=== PATIENT | female | born 1945 | race Caucasian/White ===

== ENCOUNTER 2016-07-23 07:56 | Outpatient (CLI) | payer MEDICARE, OTHER ==
[~2016-07-23] VITALS: Ht 167.6 cm; Wt 68.2 kg
--- NOTE | ~2016-07-23 | HEMODYNAMI ---
PATIENT:BRODIE GARIBAY MEDICAL RECORD: [id number] : 41 LOCATION:[facility] ADMISSION DATE: 07/23/16 Generatedon:07/23/201611:23 Patient name: BRODIE GARIBAY Patient #: [id number] : 1945 Date of study: 07/23/2016 Page: Of Hemodynamic Procedure Report Patient Data Patient Demographics Procedure consent was obtained First Name: BRODIE Gender: Female Last Name: PHOENIX : 1945 Middle Initial: SIMEON Age: 70 year(s) Patient #: [id number] Race: Unknown SSN: [id number] Additional ID: [id number] Contact details Address: [address] [place] [address] [facility] State: [place] City: [place] Zip code: [address] Past Medical History Allergies Allergen Reaction Date Comments Reported Other allergy 07/23/2016 Antihistamines, tylenol, alkylamine Admission Admission Data Admission Date: 07/23/2016 Admission Time: 7:56 Arrival Date: 07/23/2016 Arrival Time: 0:00 Admit Source: Other Insurance Payor: Medicare, Private health insurance Height (in.): 66 BSA: 1.79 (m2) Height (cm.): 167.64 BMI: 25.02 (kg/m2) Weight (lbs.): 155 Weight (kg.): 70.31 Lab Results Lab Result Date: 07/23/2016 Lab Result Time: 0:00 Biochemistry Name Units Result Min Max BUN mg/dl 25 --(----)-* 7 18 Creatinine mg/dl 1.6 --(----)-* 0.6 1.3 CBC Name Units Result Min Max Hemoglobin g/dl 14.3 --(*---)-- 13.5 17.5 Procedure Procedure Types Cath Procedure Diagnostic Procedure LHC LHC w/Coronaries w/Grafts PCI Procedure Coronary Stent Initial Miscellaneous Procedures Moderate Sedation up to 15 minutes Procedure Description Procedure Date Procedure Date: 07/23/2016 Procedure Start Time: 10:28 Procedure End Time: 11:19 Procedure Staff Name Function Rodrigo Heck MD Performing Physician Katherine Lang RT Scrub Alexa Luz RN Nurse Gonzalo Queen RT Brass Reclaimer Jyoti Cherry RT Monitor Procedure Data Cath Procedure Fluoroscopy Diagnostic fluoroscopy Total fluoroscopy Time: time: 20.9 min 20.9 min Diagnostic fluoroscopy Total fluoroscopy dose: dose: 1457 mGy 1457 mGy Contrast Material Contrast Material Type Amount (ml) Isovue 300 173 Entry Location Entry Primary Successful Side Size Upsize Upsize Entry Closure Succes sful Closure Location (Fr) 1 (Fr) 2 (Fr) Remarks Device Remarks Femoral Right 5 Fr 6 Fr 7 Fr Exoseal artery Short Short Estimated blood loss: 10 ml Diagnostic catheters Device Type Used For End Catheter Placement Cordis 5Fr Pigtail LV Angiography Catheter (MP) Cordis 5Fr JL 4.0 Left Coronary Catheter (MP) Angiography Cordis 5Fr 3DRC Catheter Procedure (MP) Cordis Infinity 5Fr AR 2 Procedure MOD catheter Procedure Complications No complications Procedure Medications Medication Administration Route Dosage Oxygen NC 2 l/min Lidocaine 2% added to field 20 Heparin Flush Bag added to field 2 bags (1000units/500ml NS) 0.9% NaCl I.V. 300 ml/hr Versed I.V. 1 mg Fentanyl I.V. 50 mcg Versed I.V. 1 mg Fentanyl I.V. 50 mcg Versed I.V. 1 mg Fentanyl I.V. 50 mcg Versed I.V. 1 mg Fentanyl I.V. 50 mcg Versed I.V. 1 mg Fentanyl I.V. 50 mcg Heparin Bolus I.V. 5000 units Versed I.V. 1 mg Fentanyl I.V. 50 mcg Versed I.V. 1 mg Fentanyl I.V. 50 mcg Heparin Bolus I.V. 3000 units Versed I.V. 1 mg Fentanyl I.V. 50 mcg Hemodynamics Rest BSA: 1.79 (m2) HGB: 14.3 (g/dl) O2 Consumption: Estimated: 160.06 (ml/min) O2 Co nsumption indexed: Estimated:89.42 (ml/min/m) Heart Rate: 64 (bpm) Snapshots Pre Cath Intra NCS Post Cath Vital Signs Time Heart Resp SPO2 etCO2 UA0eouz NIBP (mmHg) Rhythm Pain Sedation Rate (ipm) (%) (mmHg) (mmHg) Status Level (bpm) 9:54:26 68 17 97 0 0 138/91(116) NSR 0 (11) 10(A) , No pain 9:58:38 67 19 96 0 0 142/94(100) NSR 0 (11) 10(A) , No pain 10:02:52 66 20 99 0 0 138/87(109) NSR 0 () 10(A) , No pain 10:07:06 63 15 95 0 0 128/85(112) NSR 0 () 10(A) , No pain 10:11:18 63 19 96 0 0 126/80(112) NSR 0 () 10(A) , No pain 10:15:30 60 21 95 0 0 125/77(106) NSR 0 () 10(A) , No pain 10:19:42 62 16 97 0 0 114/73(95) NSR 0 () 9(A) , No pain 10:23:52 62 18 94 0 0 112/71(87) NSR 0 () 9(A) , No pain 10:28:00 66 21 97 0 0 127/73(107) NSR 0 () 9(A) , No pain 10:32:13 66 20 96 0 0 105/68(85) NSR 0 () 9(A) , No pain 10:36:19 70 21 95 0 0 117/71(93) NSR 0 (11) 9(A) , No pain 10:40:29 62 29 98 0 0 121/73(93) NSR 0 () 9(A) , No pain 10:44:37 76 16 98 0 0 129/82(109) NSR 0 (11) 9(A) , No pain 10:48:51 68 18 98 0 0 122/76(99) NSR 0 (11) 9(A) , No pain 10:53:03 66 17 94 0 0 120/70(87) NSR 0 (11) 9(A) , No pain 10:57:13 68 19 96 0 0 113/72(105) NSR 0 (11) 9(A) , No pain 11:01:23 69 18 95 0 0 117/69(108) NSR 0 (11) 9(A) , No pain 11:05:33 68 18 96 0 0 118/68(101) NSR 0 (11) 9(A) , No pain 11:09:45 69 18 94 0 0 109/64(84) NSR 0 (11) 9(A) , No pain 11:13:52 73 18 94 0 0 107/69(90) NSR 0 (11) 9(A) , No pain 11:15:08 70 19 96 0 0 110/67(90) NSR 0 (11) 10(A) , No pain 11:16:38 71 19 95 0 0 110/68(86) NSR 0 (11) 10(A) , No pain Medications Time Medication Route Dose Verified Delivered Reason Notes Effectiveness by by 9:59:51 Oxygen NC 2 Rodrigo Buffie used for l/min Maria R Luz RN procedure 9:59:58 Lidocaine 2% added 20ml Rodrigo Rodrigo for local to vial Maria R Heck MD anesthetic field 10:00:04 Heparin Flush added 2 Rodrigo Rodrigo used for Bag to bags Maria R Heck MD procedure (1000units/500ml field NS) 10:00:17 0.9% NaCl I.V. 300 Rodrigo Buffie Per physician ml/hr Maria R Luz RN 10:14:35 Versed I.V. 1 mg Rodrigo Buffie for sedation Maria R Luz RN 10:14:42 Fentanyl I.V. 50 Rodrigo Buffie for sedation mcg Maria R Luz RN 10:18:45 Versed I.V. 1 mg Rodrigo Buffie for sedation Maria R Luz RN 10:18:51 Fentanyl I.V. 50 Rodrigo Buffie for sedation mcg MariaR Luz RN 10:22:35 Versed I.V. 1 mg Rodrigo Buffie for sedation Maria R Luz RN 10:22:39 Fentanyl I.V. 50 Rodrigo Buffie for sedation mcg Maria R Luz RN 10:32:07 Versed I.V. 1 mg Rodrigo Buffie for sedation Maria R Luz RN 10:32:12 Fentanyl I.V. 50 Rodrigo Buffie for sedation mcg Maria R Luz RN 10:35:31 Versed I.V. 1 mg Rodrigo Buffie for sedation Maria R Luz RN 10:35:34 Fentanyl I.V. 50 Rodrigo Buffie for sedation mcg Maria R Luz RN 10:40:02 Heparin Bolus I.V. 5000 Rodrigo Buffie for verifi ed units Maria R Luz RN anticoagulation with dr heck 10:44:23 Versed I.V. 1 mg Rodrigo Buffie for sedation Maria R Luz RN 10:44:26 Fentanyl I.V. 50 Rodrigo Buffie for sedation mcg Maria R Luz RN 10:49:18 Versed I.V. 1 mg Rodrigo Buffie for sedation Maria R Luz RN 10:49:22 Fentanyl I.V. 50 Rodrigo Buffie for sedation mcg Maria R Luz RN 11:03:08 Heparin Bolus I.V. 3000 Rodrigo Buffie for verifi ed units Maria R Luz RN anticoagulation with dr heck 11:05:01 Versed I.V. 1 mg Rodrigo Buffie for sedation Maria R Lzu RN 11:06:38 Fentanyl I.V. 50 Rodrigo Buffie for sedation mcg Maria R Luz RN Procedure Log Time Note 9:42:12 Gonzalo Queen RT(R) sent for patient. Start room use. 9:50:27 Patient allergic to Other allergyAntihistamines, tylenol, alkylamine 9:50:36 Patient Height : 66 inches 9:50:41 Patient Weight : 155 lbs 9:50:41 Admit Source: Other 9:50:44 Arrival Date: 07/23/2016 12:00:00 AM 9:50:58 Insurance Payor : Private health insurance, Medicare 9:51:28 Diagnostic Cath Status : Elective 9:52:44 Time tracking: Regular hours 9:52:52 Plan of Care:Hemodynamics will remain stable., Cardiac rhythm will remain stable., Comfort level will be maintained., Respiratory function will remain adequate., Patient/ family verbilizes understanding of procedure., Procedure tolerated without complication., Recovers from procedure without complications.. 9:53:11 Patient received from Outpatients to CCL 1 Alert and oriented. Tansferred to table in Supine position. 9:53:13 Warm blankets applied, and mt hugger turned on for patient comfort. 9:53:14 Correct patient and procedure confirmed by team. 9:53:16 Signed procedure consent form obtained from patient. 9:53:18 ECG and BP/O2 sat monitors applied to patient. 9:53:23 Vital chart was started 9:53:38 Baseline sample Acquired. 9:53:49 Rhythm: sinus rhythm 9:53:51 Full Disclosure recording started 9:54:09 H&P Date Dictated: 07/15/2016 Within 30 days and on chart., H&P Addendum completed by physician on day of procedure. (MUST COMPLETE FOR ALL OUTPATIENTS). 9:54:14 Pre-procedure instructions explained to patient. 9:54:17 Family in waiting room. 9:54:27 Patient NPO since Midnight. 9:54:30 Is the patient allergic to Iodine/contrast media? No. 9:54:33 Is patient on blood thinner?Yes 9:54:37 ACC The patient was administered the following blood thiners within the last 24 hours: ACCPlavix 9:54:40 Patient diabetic? No. 9:54:48 Snore? No 9:54:50 Sleep apnea? No 9:54:52 Deviated septum? No 9:54:53 Opens mouth fully? Yes 9:54:54 Sticks out tongue? Yes 9:55:06 Dentures? Yes tight 9:55:15 Patient pain scale 0/10 ?. 9:55:31 IV patent on arrival in left forearm with 0.9% NaCl at [facility]. 9:56:13 Lab Result : BUN 25 mg/dl 9:56:13 Lab Result : Hemoglobin 14.3 g/dl 9:56:13 Lab Result : Creatinine 1.6 mg/dl 9:56:18 Lab results completed and on chart. 9:56:22 Right groin area was prepped with chlora-prep and draped in sterile fashion 9:56:24 Sharps counted by scrub and verified by R.N. 9:56:26 Physician paged 9:59:51 Oxygen 2 l/min NC was given by Alexa Luz RN; used for procedure; 9:59:58 Lidocaine 2% 20ml vial added to field was given by Rodrigo Heck MD; for local anesthetic; 10:00:04 Heparin Flush Bag (1000units/500ml NS) 2 bags added to field was given by Rodrigo Heck MD; used for procedure; 10:00:17 0.9% NaCl 300 ml/hr I.V. was given by Alexa Luz RN; Per physician; 10:07:12 Zero performed for pressure channel P1 10:09:15 Procedure type changed to Cath procedure, Diagnostic procedure, LHC, LHC w/Coronaries w/Grafts, PCI procedure, Coronary Stent Initial, Miscellaneous Procedures, Moderate Sedation up to 15 minutes 10:12:54 Physician arrived 10:12:55 --------ALL STOP TIME OUT------ 10:12:56 Final Timeout: patient, procedure, and site verified with staff and physician. All members of the team are in agreement. 10:12:59 Right groin site verified by team. 10:13:03 Physical assessment completed. ASA score P 2 - A patient with mild systemic disease as per Rodrigo Heck MD. 10:13:08 Sedation plan: IV Moderate Sedation Versed, Fentanyl 10:13:28 Acist Syringe opened to sterile field. 10:13:28 Cardinal Cath Pack opened to sterile field. 10:13:28 Bag Decanter opened to sterile field. 10:13:30 St Franklin 260cm J .035 wire opened to sterile field. 10:13:31 Acist Hand Control opened to sterile field. 10:13:32 Acist Manifold opened to sterile field. 10:13:36 Tegaderm 4 x 4 opened to sterile field. 10:14:35 Versed 1 mg I.V. was given by Alexa Luz RN; for sedation; 10:14:42 Fentanyl 50 mcg I.V. was given by Alexa Luz RN; for sedation; 10:18:45 Versed 1 mg I.V. was given by Alexa Luz RN; for sedation; 10:18:51 Fentanyl 50 mcg I.V. was given by Alexa Luz RN; for sedation; 10:22:35 Versed 1 mg I.V. was given by Alexa Luz RN; for sedation; 10:22:39 Fentanyl 50 mcg I.V. was given by Alexa Luz RN; for sedation; 10:27:59 Procedure started. 10:28:16 Local anesthetic to right femoral artery with Lidocaine 2% by Rodrigo Heck MD.INITIAL ACCESS ONLY 10:28:40 A 5 Fr sheath was inserted into the Right Femoral artery 10:30:11 Use device set Femoral Dx 10:30:28 A Cordis 5Fr Pigtail Catheter (MP) was advanced over the wire and used for LV Angiography. 10:31:02 EF : 50 % 10:31:04 Catheter removed. 10:32:07 Versed 1 mg I.V. was given by Alexa Luz RN; for sedation; 10:32:12 Fentanyl 50 mcg I.V. was given by Alexa Luz RN; for sedation; 10:32:27 A Cordis 5Fr JL 4.0 Catheter (MP) was advanced over the wire and used for Left Coronary Angiography. 10:33:34 Catheter removed. 10:34:19 A Cordis 5Fr 3DRC Catheter (MP) was advanced over the wire and used for Procedure. 10:34:46 [employer] BasixCompak Inflation Kit opened to sterile field. 10:34:47 Robledo Whisper J 300cm 0.014 guide wire opened to sterile field. 10:34:48 Terumo 6Fr [place] Sheath opened to sterile field. 10:35:01 JADE to LAD angiography performed. 10:35:31 Versed 1 mg I.V. was given by Alexa Luz RN; for sedation; 10:35:34 Fentanyl 50 mcg I.V. was given by Alexa Luz RN; for sedation; 10:35:49 RCA angiography performed. 10:36:01 Catheter removed. 10:36:37 A Cordis Infinity 5Fr AR 2 MOD catheter was advanced over the wire and used for Procedure. 10:38:29 SVG to OM angiography performed. 10:39:58 Medtronic Launcher 6Fr EBU 4.5 guide catheter opened to sterile field. 10:40:02 Heparin Bolus 5000 units I.V. was given by Alexa Luz RN; for anticoagulation; verified with dr heck 10:40:04 Proceeding to intervention. 10:40:17 Sheath upsized to a 6 Fr Short. 10:40:37 6 Fr EBU 4.5 guide catheter was inserted over the wire 10:40:53 EBU 4.5 unable to cannulate 10:42:13 [place] Sci Mach 1 6Fr Q 5.0 guide catheter opened to sterile field. 10:42:32 6 Fr Q5 guide catheter was inserted over the wire 10:43:13 Q5 unable to cannulate 10:43:52 Cordis 6FR XBLAD 4.0 guide catheter opened to sterile field. 10:44:07 6 Fr XBLAD 4 guide catheter was inserted over the wire 10:44:23 Versed 1 mg I.V. was given by Alexa Luz RN; for sedation; 10:44:26 Fentanyl 50 mcg I.V. was given by Alexa Luz RN; for sedation; 10:45:28 Sheath upsized to a 7 Fr Short. 10:45:32 Terumo 7Fr [place] Sheath opened to sterile field. 10:45:59 Medtronic Launcher 7Fr EBU 3.5 guide catheter opened to sterile field. 10:46:22 Medtronic Launcher 7Fr EBU 3.5 guide catheter opened to sterile field. 10:46:35 7 Fr EBU 3.5 guide catheter was inserted over the wire 10:48:44 Whisper wire advanced. 10:49:17 [place] 01[employer] Choice PT Extra Support J 300cm .014 gu opened to sterile field. 10:49:18 Versed 1 mg I.V. was given by Alexa Luz RN; for sedation; 10:49:22 Fentanyl 50 mcg I.V. was given by Alexa Luz RN; for sedation; 10:50:25 choice pt wire advanced. 10:51:44 Wire advanced across lesion. 10:52:34 Mav unable to cross 10:53:46 Inflation number: 1 A Euphora 3.0 x 20 Balloon was prepped and advanced across the Prox CX, then inflated to 13 LEANA for 0:10 (min:sec). 10:53:58 Inflation number: 2 The Euphora 3.0 x 20 Balloon was reinflated across the Prox CX, to 13 LEANA for 0:10 (min:sec). 10:54:07 Inflation number: 3 The Euphora 3.0 x 20 Balloon was reinflated across the Prox CX, to 13 LEANA for 0:10 (min:sec). 10:54:18 Inflation number: 4 The Euphora 3.0 x 20 Balloon was reinflated across the Prox CX, to 17 LEANA for 0:10 (min:sec). 10:55:34 Balloon removed over the wire. 10:56:59 Inflation Number: 1 A Medtronic Integrity 4.0 X 9 stent was prepped and advanced across the Mid CX. The stent was deployed at 17 LEANA for 0:10 (min:sec). 11:03:08 Heparin Bolus 3000 units I.V. was given by Alexa Luz RN; for anticoagulation; verified with dr heck 11:04:41 choice pt exchanged for new. 11:04:57 Inflation number: 1 A [place] Sci Snyder 4.0 X 20 balloon was prepped and advanced across the Prox CX, then inflated to 11 LEANA for 0:10 (min:sec). 11:05:01 Versed 1 mg I.V. was given by Alexa Luz RN; for sedation; 11:05:06 Inflation number: 2 The [place] Sci Snyder 4.0 X 20 balloon was reinflated across the Prox CX, to 11 LEANA for 0:10 (min:sec). 11:05:17 Balloon removed over the wire. 11:06:38 Fentanyl 50 mcg I.V. was given by Alexa Luz RN; for sedation; 11:07:33 Inflation Number: 7 A Medtronic Integrity 3.5 X 15 stent was prepped and advanced across the Prox CX. The stent was deployed at 17 LEANA for 0:10 (min:sec). 11:10:02 Inflation Number: 1 A Medtronic Integrity 3.5 X 9 stent was prepped and advanced across the Prox CX. The stent was deployed at 17 LEANA for 0:10 (min:sec). 11:11:28 The Medtronic Integrity 3.5 X 30 stent was advanced then removed because of failure to cross lesion 11:12:06 Wire removed. 11:12:09 Guide catheter removed. 11:12:31 Sheath removed intact; hemostasis achieved with Exoseal to the Right Femoral artery. 11:12:34 Procedure ended.(Physican Out) 11:13:51 Cordis 7Fr Exoseal opened to sterile field. 11:13:59 Fluoroscopy time 20.90 minutes. 11:14:09 Fluoroscopy dose: 1457 mGy 11:14:09 Flurop Dose total: 1457 11:14:14 Contrast amount:Isovue 300 173ml. 11:14:17 Sharps counted by scrub and verified by R.N. 11:14:23 Insertion/operative site no bleeding no hematoma. 11:14:27 Post-op/insertion site Right Femoral artery dressed using a 4 x 4 and Tegaderm. 11:14:30 Post Procedure Pulses reassessed and unchanged 11:14:35 Post-procedure physical assessment completed. ASA score P 2 - A patient with mild systemic disease as per Rodrigo Heck MD. 11:14:39 Post procedure rhythm: unchanged. 11:14:42 Estimated blood loss: 10 ml 11:14:45 Post procedure instruction explained to patient.Patient verbalizes understanding. 11:14:58 Procedure and supply charges have been captured, reviewed, submitted and are correct. 11:19:02 Procedure Complication : No complications 11:19:05 Vital chart was stopped 11:19:06 See physician's report for complete and final results. 11:19:22 Report given to Outpatients. 11:19:26 Patient transfered to Outpatients with Stretcher. 11:19:32 Procedure ended. 11:19:32 Full Disclosure recording stopped 11:19:36 End room use (Document Last) 11:19:58 ACC-PCI Only Patient was given prescriptions, or instructed by Rodrigo Heck MD to start/continue the following medications upon discharge: Plavix Intervention Summary Intervention Notes Time ActionType Lesion and Equipment Action# Pressure Duration Attributes Used 10:53:46 Inflate Prox CX Euphora 1 13 00:10 balloon 3.0 x 20 Balloon 10:53:58 Reinflate Prox CX Euphora 2 13 00:10 balloon 3.0 x 20 Balloon 10:54:07 Reinflate Prox CX Euphora 3 13 00:10 balloon 3.0 x 20 Balloon 10:54:18 Reinflate Prox CX Euphora 4 17 00:10 balloon 3.0 x 20 Balloon 10:56:59 Place stent Mid CX Medtronic 1 17 00:10 Integrity 4.0 X 9 stent 11:04:57 Inflate Prox CX [place] 1 11 00:10 balloon Sci Snyder 4.0 X 20 balloon 11:05:06 Reinflate Prox CX [place] 2 11 00:10 balloon Sci Snyder 4.0 X 20 balloon 11:07:33 Place stent Prox CX Medtronic 7 17 00:10 Integrity 3.5 X 15 stent 11:10:02 Place stent Prox CX Medtronic 1 17 00:10 Integrity 3.5 X 9 stent 11:11:28 Discard Medtronic Stent Integrity 3.5 X 30 stent Device Usage Item Name Manufacture Quantity Catalog Number Hospital Part Current Mini mal Lot# / Charge Number Stock Stock Serial# Code [facility] 2 91271 [id number] [id number] [id number] 20 [employer] [facility] [address] 064116 28239 094502 5 Cath Pack Health Bag Microtek 2 2002S 775322 44107 854155 [address] [facility] 2 619468 132342 912687 347453 30 260cm J .035 wire Acist Hand Acist 2 18694 251660 047971 918152 5 Control Medical Systems Inc Acist Acist 2 78408 283579 098610 987421 5 Manifold Medical Systems Inc Tegaderm 4 3M 2 1626W 548343 642206 607359 5 x 4 Cordis 5Fr Cardinal 1 656519 5 Pigtail Health Catheter (MP) Cordis 5Fr Cardinal 1 880641 5 JL 4.0 Health Catheter (MP) Cordis 5Fr Cardinal 1 195255 5 3DRC Health Catheter (MP) [facility] 1 [id number] 065149 569784 506920 15 [employer] Medical Inflation Kit Robledo Robledo 1 [id number] 018075 585352 316502 5 Whisper J Vascular 300cm 0.014 guide wire Terumo 6Fr Terumo 1 [id number] 644432 414053 449565 40 [place] Sheath Cordis Cardinal 1 [id number] 507272 332852 851629 20 Blueprint Labsity Health 5Fr AR 2 MOD catheter Medtronic Medtronic 1 [id number] 462921 19258 311867 0 Launcher 6Fr EBU 4.5 guide catheter [place] Sci [place] 1 [id number] 465682 047286 136101 0 Mach 1 6Fr Scientific Q 5.0 guide catheter Cordis 6FR Cardinal 1 [id number] 097502 679931 155868 3 XBLAD 4.0 Health guide catheter Terumo 7Fr Terumo 1 [id number] 386898 819800 750901 5 [place] Sheath Medtronic Medtronic 2 [id number] 662226 833131 937062 0 Launcher 7Fr EBU 3.5 guide catheter Terumo 5Fr Terumo 1 [id number] 440058 076963 032900 40 [place] Sheath Cordis Cardinal 1 [id number] 371731 73845 641865 30 Infinity Health 5Fr Multipack catheter IV Hospira 1 670568 22294 076952 5 Extension Set Terumo 6Fr Terumo 1 [id number] 126286 933135 801810 40 Slender Glidesheath [place] Sci [place] 1 [id number] 921735 115704 466307 5 Choice PT Scientific Extra Support J 300cm .014 gu Euphora 3.0 Medtronic 1 [id number] 760052 588140 775970 5 [id number] x 20 Balloon Medtronic Medtronic 1 [id number] 381561 508768 4422557 0 [id number] Integrity 4.0 X 9 stent [place] Sci [place] 1 [id number] 300772 120271 699772 1 [id number] Snyder Scientific 4.0 X 20 balloon Medtronic Medtronic 1 [id number] 626749 357589 472864 9 [id number] Integrity 3.5 X 15 stent Medtronic Medtronic 1 [id number] 664573 391891 417171 5 [id number] Integrity 3.5 X 9 stent Medtronic Medtronic 1 [id number] 033965 440389 867137 2 [id number] Integrity 3.5 X 30 stent Cordis 7Fr Cardinal 1 [id number] 353358 512485 477224 5 [facility] Health Signature Audit [place] Stage Time Signature Unsigned Intra-Procedure 07/23/2016 Jyoti Cherry 11:23:34 AM RT(R) Signatures Monitor : Jyoti Cherry RT Signature : Date : Time : [id number] [place] [address]
[~2016-07-23 07:56] MED LIST: BAYER CHEWABLE81 MG PO; CARDIZEM CD240 MG PO; FLAGYL500 MG PO; LEVSIN/ANASP0.125 MG SL; PLAVIX75 MG PO; PRAVACHOL10 MG PO; PREDNISONE5 MG PO; ZANAFLEX4 MG PO
[2016-07-23 08:48] VITALS: Ht 167.6 cm; Wt 68.2 kg
[2016-07-23 08:56] LABS: BASOPHILS 0.3 % (0.0-2.0); EOSINOPHILS 2.4 % (0-7); HEMATOCRIT 43.1 % (36.0-48.0); HEMOGLOBIN 14.3 g/dL (12-16); LYMPHOCYTES 40.7 % (15-50); MCH 30.5 pg (26.0-34.0); MCHC 33.2 g/dL (31.0-37.0); MCV 91.9 fL (80.0-100.0); MEAN PLATELET VOLUME 9.8 fL (7.4-10.4); MONOCYTES 8.8 % (2-11); NEUTROPHILS 46.8 % (40-80); RBC 4.69 10x6/uL (4.00-5.40); RDW 13.5 % (11.5-14.5); WBC 7.9 10x3/uL (4.8-10.8)
[2016-07-23] MEDS ORDERED: PRAVACHOL20 MG PO (08:56)
[2016-07-23 08:58] LABS: PLATELET COUNT 249 10x3/uL (130-400)
[2016-07-23] MEDS ORDERED: RESTORIL15 MG PO (08:58)
[2016-07-23] MEDS ORDERED: GABAPENTIN100 MG PO (08:59)
[2016-07-23] MEDS ORDERED: VICOPROFEN PO (09:00)
[2016-07-23 09:08] LABS: ANION GAP 15.6 mmol/L (8-16); CALCIUM 9.5 mg/dL (8.5-10.1); CARBON DIOXIDE 24.2 mmol/L (21.0-32.0); CREATININE - SERUM 1.6 mg/dL (0.6-1.3); POTASSIUM - SERUM 3.8 mmol/L (3.5-5.1)
--- NOTE | 2016-07-23 11:45 | NUR ---
1145 NSR RATE 77 BP 119/77 CHEST PAIN DENIED. 7 FR EXOSEAL R/GROIN CDI NO BLEEDING NO HEMATOMA NOTED INSTRUCTED PATIENT TO KEEP HEAD FLAT ON PILLOW WITH RLE STRAIGHT
--- NOTE | 2016-07-23 12:39 | NUR ---
1230 PT SLEEPING, AWAKENS EASILY TO VERBAL STIMULI, DENIES ANY C/O. DRESSING TO RIGHT GROIN IS CDI, NO BLEEDING OR HEMATOMA NOTED. PEDAL PULSES PALPABLE. CALL LIGHT IN REACH, PT TOLERATING PO FLUIDS.
--- NOTE | 2016-07-23 13:44 | NUR ---
1330 REPORT AND CARE TO ARIAN OBREGON RN.
--- NOTE | 2016-07-25 13:59 | OP ---
PATIENT NAME: BRODIE GARIBAY MEDICAL RECORD: [id number] :41 LOCATION:D.CAT ADMISSION DATE: SURGEON: MARTIN CID MD DATE OF OPERATION: 07/23/2016 PROCEDURES: 1. PTCA stent left circumflex. 2. Left heart catheterization. 3. Selective coronary angiography. 4. Left ventriculogram. 5. Vein graft angiography. 6. JADE angiography. INDICATION: Angina and coronary artery disease. PROCEDURE IN DETAIL: After informed consent was obtained and after detailed explanation of risks, benefits as well as alternative therapies, the patient elected to proceed with angiogram and angioplasty. The right femoral area was prepped and draped in normal sterile fashion. The right femoral artery was cannulated via modified Seldinger technique with placement of a 7-Malaysian sheath. All catheters exchanged through this sheath. FINDINGS: The left ventriculogram was performed in standard 30-degree LICEA view, reveals good cardiac wall motion throughout all segments. Overall ejection fraction estimated 50%. SELECTIVE CORONARY ANGIOGRAPHY: 1. Left main is with no significant angiographic disease. 2. Left anterior descending is totally occluded in mid vessel. 3. JADE to the LAD is widely patent. 4. Left circumflex has a long area of 80% to 90% stenosis proximally followed by a 95% stenosis in the mid vessel. The first obtuse marginal was totally occluded. This is a dominant circumflex. This affects the large second obtuse marginal distribution. 5. Right coronary is small, nondominant. 6. Vein graft to the first obtuse marginal was widely patent. PTCA STENT OF THE LEFT CIRCUMFLEX: Stents used were 4.0 x 8, 3.5 x 15, 3.5 x 8, all Integrity stents. Result was 0% residual stenosis. OVERALL IMPRESSION: Successful percutaneous transluminal coronary angioplasty stent of the left circumflex going from multiple areas of 90% and 95% initial stenosis to 0% residual. TRANSINT:[id number] Voice Confirmation ID: [id number] DOCUMENT ID: [id number] MARTIN CID MD at 1359 CC: [id number] DICTATION DATE: 07/23/16 1118 OBSTETRICAL TECH: 07/23/16 1131 DEP CLI 07/23/16 [place] [address]
== END 2016-07-23 15:45 | disposition home or self-care (01) ==
LOC: D.CATH 07:56
PROVIDERS: Internal Medicine Interventional Cardiology
DX: I25.119 Atherosclerotic heart disease of native coronary artery with unspecified angina pectoris (principal); Z95.1 Presence of aortocoronary bypass graft

== ENCOUNTER → 2016-08-06 09:06 | Outpatient (CLI) | payer MEDICARE, OTHER ==
[2016-07-23 08:48] VITALS: BMI 24.2
[~2016-08-06 09:06] MED LIST changes: +GABAPENTIN100 MG PO; +PRAVACHOL20 MG PO; +RESTORIL15 MG PO; +VICOPROFEN PO
== END | disposition home or self-care (01) ==
LOC: D.US 08-05 13:30
DX: I71.4 Abdominal aortic aneurysm, without rupture (principal)

== ENCOUNTER → 2016-11-04 08:30 | Outpatient (CLI) | payer MEDICARE, OTHER ==
[2016-07-23 08:48] VITALS: BMI 24.2
== END ==
LOC: D.MAMMO 08:30
DX: Z12.31 Encounter for screening mammogram for malignant neoplasm of breast (principal)

== ENCOUNTER → 2017-11-06 08:53 | Outpatient (CLI) | payer MEDICARE, OTHER ==
[2016-07-23 08:48] VITALS: BMI 24.2
== END | disposition home or self-care (01) ==
LOC: D.CT 08:53
DX: I71.4 Abdominal aortic aneurysm, without rupture (principal)

== ENCOUNTER 2018-02-20 14:17 | Outpatient (CLI) | payer MEDICARE, OTHER ==
[2016-07-23 08:48] VITALS: BMI 24.2
== END 2018-02-20 15:40 | disposition home or self-care (01) ==
LOC: D.OPS 14:17
DX: N39.0 Urinary tract infection, site not specified (principal); Z01.812 Encounter for preprocedural laboratory examination

== ENCOUNTER 2018-02-22 09:31 | Outpatient (CLI) | payer MEDICARE, OTHER ==
[~2018-02-22] VITALS: Ht 167.6 cm; Wt 68.2 kg
[2018-02-22 12:08] VITALS: BP 125/72; Ht 167.6 cm; Wt 68.2 kg
== END 2018-02-22 15:36 | disposition home or self-care (01) ==
LOC: D.OPS 09:31 → D.MS 09:44 → D.OPS 15:36
DX: N39.0 Urinary tract infection, site not specified (principal); Z01.812 Encounter for preprocedural laboratory examination

== ENCOUNTER → 2018-04-14 12:17 | Outpatient (CLI) | payer MEDICARE, OTHER ==
[2018-02-22 12:08] VITALS: BMI 24.2
== END | disposition home or self-care (01) ==
LOC: D.CT 12:17
DX: I71.4 Abdominal aortic aneurysm, without rupture (principal)

== ENCOUNTER 2018-04-15 17:28 | Inpatient (IN) | payer MEDICARE, OTHER ==
[~2018-04-15] VITALS: Ht 167.6 cm; Wt 65.6 kg
--- NOTE | ~2018-04-15 | OP ---
PATIENT NAME: BRODIE GARIBAY MEDICAL RECORD: [id number] :41 LOCATION:D.M2 D.2115 ADMISSION DATE:04/17/18 SURGEON: MARTIN CID MD DATE OF OPERATION: 04/16/2018 PROCEDURES: 1. PTCA stent vein graft to circumflex. 2. Left heart catheterization. 3. Selective coronary angiography. 4. Vein graft angiography. 5. JADE angiography. INDICATION: Unstable angina and coronary artery disease. PROCEDURE IN DETAIL: After informed consent was obtained and after detailed description of risks, benefits as well as alternative therapies, the patient elected to proceed with angiogram and angioplasty. The right femoral area was prepped and draped in normal sterile fashion. Right femoral artery was cannulated via modified Seldinger technique with placement of 6-Tongan sheath. All catheters exchanged through this sheath. FINDINGS: Left ventriculogram was not done due to inability to cross the aortic valve. SELECTIVE CORONARY ANGIOGRAPHY: 1. Left main is with no significant angiographic disease. 2. Left anterior descending has severe diffuse disease proximally and then total occlusion in the mid vessel. 3. JADE to the LAD is widely patent. Distal LAD is diffusely diseased. 4. The left circumflex has previously placed stents, these are widely patent with no significant restenosis. Elsewise moderate diffuse disease of the circumflex. 5. The vein graft to the first obtuse marginal was patent; however, has a new 85% stenosis in the distal shaft. 6. The right coronary is totally occluded. 7. No graft to the right coronary could be located. PTCA STENT OF THE VEIN GRAFT TO THE CIRCUMFLEX: The stent used was a 4.0 x 8 mm Integrity. Result was 0% residual stenosis. OVERALL IMPRESSION: Successful PTCA stent of the vein graft to the obtuse marginal of the circumflex going from 85% initial stenosis to 0% residual. TRANSINT:[id number] Voice Confirmation ID: [id number] DOCUMENT ID: [id number] MARTIN CID MD at 0936 CC: [id number] DICTATION DATE: 04/16/18 1447 OIL REFINERY OPERATOR: 04/16/18 1541 [place] [address]
--- NOTE | ~2018-04-15 | DS ---
PATIENT:BRODIE TYLER :41 MEDICAL RECORD: [id number] DISCHARGE SUMMARY ADMISSION DATE: 04/17/18 DISCHARGE DATE: 04/18/18 DIAGNOSES: 1. Paroxysmal atrial fibrillation. 2. Angina. 3. Coronary artery disease. 4. Percutaneous transluminal coronary angioplasty and stent to the vein graft to circumflex this admission. 5. Peripheral vascular disease. 6. Hypertension. 7. Hyperlipidemia. BRIEF HISTORY AND HOSPITAL COURSE: Ms. Tyler presents with atrial fibrillation, converted to sinus rhythm with sotalol. Cardiac catheterization revealed critical disease in the vein graft to the circumflex, underwent successful PTCA stent of this territory. Had an uneventful postop course and was discharged home with the addition of Plavix as well as sotalol to her medical regimen. Follow up with [facility] in 1 month. TRANSINT:[id number] Voice Confirmation ID: [id number] DOCUMENT ID: [id number] MARTIN CID MD at 1059 CC: [id number] DICTATION DATE: 04/16/18 1447 HUMAN RESOURCES OPERATIONS DIRECTOR: 04/16/18 2316 DIS IN 04/18/18 [place] [id number] [place] [address]
--- NOTE | ~2018-04-15 | OP ---
PATIENT NAME: BRODIE GARIBAY MEDICAL RECORD: [id number] :41 LOCATION:D.M2 D.2115 ADMISSION DATE:04/17/18 SURGEON: MARTIN CID MD DATE OF OPERATION: 04/16/2018 PROCEDURES: 1. Aortofemoral runoff. 2. Abdominal aortography. INDICATION: Claudication and peripheral vascular disease. PROCEDURE IN DETAIL: After informed consent was obtained and after detailed description of risks, benefits as well as alternative therapies, the patient proceeded with the aortofemoral runoff. The right femoral area had a preexisting sheath from cardiac intervention. All catheters exchanged through this sheath. FINDINGS: Abdominal aortography was performed. The catheter was pulled down for aortofemoral runoff. Abdominal aortography reveals no significant abdominal aortic disease, no dissection or aneurysm formation. RIGHT LEG: A. Iliac: The common internal and external iliacs have moderate diffuse disease, but no flow-limiting stenosis. B. Femoral system: The common and deep femoral are widely patent. Superficial femoral has moderate diffuse disease, but no discrete flow-limiting stenosis. C. Popliteal and infrapopliteal vessels: The popliteal is patent. Anterior tibial is totally occluded. The posterior tibial and peroneal are patent giving 2-vessel runoff to the foot, although [id number] diffusely diseased. LEFT LEG: A. Iliac: The common internal and external iliacs have moderate diffuse disease, but no flow-limiting stenosis. B. Femoral system: The common and deep femoral are widely patent. Superficial femoral has moderate diffuse disease, but no discrete flow-limiting stenosis. C. Popliteal and infrapopliteal vessels: The popliteal is patent. Anterior tibial is totally occluded. The posterior tibial and peroneal are patent giving 2-vessel runoff to the foot, although [id number] diffusely diseased. OVERALL IMPRESSION: Moderate diffuse disease throughout the lower extremities, but no discrete flow-limiting stenosis. Continue medical management of the peripheral vascular disease and peripheral risk factors. TRANSINT:[id number] Voice Confirmation ID: [id number] DOCUMENT ID: [id number] MARTIN CID MD at 1059 CC: [id number] DICTATION DATE: 04/16/18 1447 CAREER SERVICES DIRECTOR: 04/16/18 1542 DIS IN 04/18/18 [place] [id number]
--- NOTE | ~2018-04-15 | CN ---
PATIENT NAME:BRODIE GARIBAY MEDICAL RECORD: [id number] : 41 LOCATION:D. D.2115 ADMIT DATE: 04/17/18 ACCOUNT: [id number] CONSULTING PHYSICIAN: SALLY TSE DO REFERRING PHYSICIAN: MARTIN CID MD DATE OF CONSULTATION: 04/16/2018 HISTORY OF PRESENT ILLNESS: A 72-year-old female presented to the Emergency Room with increasing lower abdominal pain. The patient has a history of recurrent UTIs with multidrug-resistant rheumatoid arthritis, lupus, abdominal aortic aneurysm greater than 5 cm, has been followed for this at [facility]. She reports feeling ill for the past month, has not followed up in the clinic, is sporadically compliant with treatment and medications. Admits intermittent nausea. Was treated outpatient antibiotic infusions due to multiple drug allergies/intolerance and multidrug-resistant bacteria in her urine. She has been off of her cardiac medicines for the past 3 days due to not feeling well. Presented to the Emergency Room with racing heart and shortness of breath. Numerous reported drug allergies, see chart. HOME MEDICATIONS: Reported as pravastatin, temazepam, gabapentin, Vicoprofen from pain management or public information officer unclear, aspirin, diltiazem, and prednisone. PAST MEDICAL HISTORY: Significant for stroke, abdominal aortic aneurysm 6 cm, chronic AFib, coronary artery disease status post bypass 4-vessel, chronic pain, lupus, rheumatoid, Sjogren's, Raynaud's, recurrent UTIs, anemia. REVIEW OF SYSTEMS: CONSTITUTIONAL: Unknown weight changes. Admits decreased appetite, poor p.o. intake for the last 3+ days with not taking her medicines for the past 3 days. HEENT: Denies cephalgia or visual changes. Denies tinnitus or epistaxis. CARDIOVASCULAR: Admits shortness of breath, rapid heart rate, history of chronic AFib. PULMONARY: Denies hemoptysis. Denies night sweats. GASTROINTESTINAL: Denies hematemesis, hematochezia, or melena. Admits nausea, ill feeling for the past several days/weeks. GENITOURINARY: Recurrent UTI, also likely colonization. History of recurrent multidrug-resistant bacteria. MUSCULOSKELETAL: Chronic pain, multiple morbidities as noted above. PHYSICAL EXAMINATION: VITAL SIGNS: Temperature on admission 100.2, blood pressure 135/110, heart rate 87, respirations 18. HEENT: Head: Normocephalic, atraumatic. Eyes: Pupils equally round, reactive. Ears: Canals patent. TMs are intact. Nose: Nares patent without drainage. Throat: No erythema, no exudates. NECK: Supple. No lymphadenopathy. HEART: Irregularly irregular. Rate presently controlled with heart rate of 86. LUNGS: Clear to auscultation bilaterally. Breathing is nonlabored. ABDOMEN: Soft. Mild diffuse tenderness. No rebound. No guarding. EXTREMITIES: Present times 4. NEUROLOGIC: No focal deficits. SKIN: Warm and dry. No rash. LABORATORY DATA: Lactic acid 1.0, on admission it was 2.3. D-dimer elevated at CONSULT REPORT [id number] BRODIE GARIBAY 10.79. V/Q scan negative. Urinalysis; dark yellow, hazy, 1+ protein, positive nitrites, 10-25 wbc's per high-powered field, many bacteria. Urine culture not obtained in the ER, we will order. Urine drug screen positive for opiates and benzos. CBC: White count 10.5, hemoglobin 15, hematocrit 43.9, platelets 230. Chemistry shows a sodium of 137, potassium 4.5, chloride 98, bicarbonate 27.5, BUN 32, creatinine 1.7, magnesium 1.9. Troponin less than 0.017. Amylase 79, lipase 231. TSH 2.53. V/Q scan, low probability for PE. EKG showed AFib with RVR, rate 116. Blood cultures pending. X-ray, no acute cardiopulmonary disease. CT ordered by [facility] done several days ago again showed the 6-cm abdominal aortic aneurysm. ASSESSMENT AND PLAN: 1. Atrial fibrillation with rapid ventricular response, rate controlled presently on sotalol. Cardiology following. The patient admitted to cardiology. 2. Abdominal aortic aneurysm has been evaluated by thoracic surgery here, is not a surgical candidate, is presently followed at [facility] by vascular surgery there. 3. Polyarthralgia, history of rheumatoid, lupus, Sjogren's. Followed by rheumatology. 4. Recurrent urinary tract infection/colonization. We will obtain urine culture. Due to the patient's multiple-drug resistant bacteria and medication intolerance, we will consult infectious disease for recommendations. 5. Sporadic compliance. Counseled the patient on the importance of compliance. 6. Depression due to multiple comorbidities. Consider psychiatric evaluation. Has been intolerant of medications in the past. I appreciate this consult. We will follow accordingly. TRANSINT:[id number] Voice Confirmation ID: [id number] DOCUMENT ID: [id number] SALLY TSE DO at 0809 CC: [id number] DICTATION DATE: 04/16/18 0751 AUTOMATIC TRANSMISSION MECHANIC: 04/16/18 0825 DIS IN 04/18/18 [place] [id number] [place] [id number]
--- NOTE | ~2018-04-15 | HEMODYNAMI ---
PATIENT:BRODIE GARIBAY MEDICAL RECORD: [id number] : 41 LOCATION:[facility] D.2115 ADMISSION DATE: 04/15/18 Generatedon:04/16/201812:41 Patient name: BRODIE GARIBAY Patient #: [id number] : 1945 Date of study: 04/16/2018 Page: Of Hemodynamic Procedure Report Patient Data Patient Demographics Procedure consent was obtained First Name: BRODIE Gender: Female Last Name: [place] : 1945 [facility] Initial: SIMEON Age: 72 year(s) Patient #: [id number] Race: Unknown SSN: [id number] Additional ID: [id number] Contact details Address: [address] [place] [address] [facility] State: [place] City: [place] Zip code: [address] Past Medical History Allergies Allergen Reaction Date Comments Reported Other allergy 07/23/2016 Antihistamines, tylenol, alkylamine Other allergy 04/16/2018 ACETAMINOPHEN, CLEMASTINE, BENADRYL, LEVAQUIN, MENTHOL, PHENPROPHEDRINE, TRIPLEMANINE, SULFA, CIPRO, QUINOLONES, MACROBID Admission Admission Data Admission Date: 04/15/2018 Admission Time: 20:12 Room #: D.2115 Weight (lbs.): 136.69 Weight (kg.): 62 Lab Results Lab Result Date: 04/16/2018 Lab Result Time: 0:00 Biochemistry Name Units Result Min Max BUN mg/dl 32 --(----)-* 7 18 Creatinine mg/dl 1.7 --(----)-* 0.6 1.3 CBC Name Units Result Min Max Hemoglobin g/dl 15 --(-*--)-- 13.5 17.5 Procedure Procedure Types Cath Procedure Diagnostic Procedure LHC Coronaries w/Grafts PCI Procedure AMI/SVG/ACCOUNTING MACHINE SERVICER PTCA or Stent SVG-BMS/SAW Initial Peripheral Cath Diagnostic Procedure Associate Of Science In Nursing Peripheral Procedures Akovu-Fzixoih-Vtl-Off Procedure Description Procedure Date Procedure Date: 04/16/2018 Procedure Start Time: 12:06 Procedure End Time: 12:40 Procedure Staff Name Function Rodrigo Heck MD Performing Physician Gonzalo Queen RT Monitor Jessie Waldron RT Scrub Gillian Iraheta RN Nurse Alexa Luz RN Nurse Procedure Data Cath Procedure Fluoroscopy Diagnostic fluoroscopy Total fluoroscopy Time: 9.5 time: 9.5 min min Diagnostic fluoroscopy Total fluoroscopy dose: 720 dose: 720 mGy mGy Contrast Material Contrast Material Type Amount (ml) Isovue 300 140 Entry Location Entry Primary Successful Side Size Upsize Upsize Entry Closure Succes sful Closure Location (Fr) 1 (Fr) 2 (Fr) Remarks Device Remarks Femoral Right 5 Fr 6 Fr Exoseal artery Short Estimated blood loss: 10 ml Diagnostic catheters Device Type Used For End Catheter Placement MULTIPACK Pigtail 5 Fr Procedure catheter MULTIPACK JL 4.0 5Fr Procedure catheter MULTIPACK 3DRC 5Fr Procedure catheter DIAGNOSTIC AR2 MOD 5 Fr Procedure catheter ([id number]) Procedure Complications No complications Procedure Medications Medication Administration Route Dosage 0.9% NaCl I.V. 100 ml/hr Oxygen etCO2 Nasal cannula 2 l/min Lidocaine 2% added to field 20 Heparin Flush Bag added to field 2 bags (1000units/500ml NS) Fentanyl I.V. 50 mcg Versed I.V. 2 mg Versed I.V. 1 mg Heparin Bolus I.V. 4000 units Versed I.V. 1 mg Hemodynamics Rest HGB: 15 (g/dl) Heart Rate: 78 (bpm) Pressure Samples Time Site Value (mmHg) Purpose Heart Use Rate(bpm) 12:10 AO 82/51(64) Snapshot 74 12:13 AO 91/53(69) Snapshot 73 Snapshots Pre Cath Intra NCS Post Cath Vital Signs Time Heart Resp SPO2 etCO2 NIBP (mmHg) Rhythm Pain Sedation Rate (ipm) (%) (mmHg) Status Level (bpm) 11:50:00 78 15 98 26 123/88(107) NSR 0 (11) 10(A) , No pain 11:58:20 73 23 97 43 123/85(91) NSR 0 (11) 10(A) , No pain 12:02:34 75 24 97 29 91/67(79) NSR 0 (11) 10(A) , No pain 12:06:42 66 25 96 27.5 100/65(85) NSR 0 (11) 10(A) , No pain 12:10:52 75 31 97 29 110/72(96) NSR 0 (11) 10(A) , No pain 12:15:08 73 22 98 31.2 103/63(85) NSR 0 (11) 10(A) , No pain 12:19:20 74 20 97 31.2 114/69(91) NSR 0 (11) 10(A) , No pain 12:23:34 72 21 96 32 112/74(91) NSR 0 (11) 10(A) , No pain 12:27:48 72 22 97 34.2 106/69(87) NSR 0 (11) 10(A) , No pain 12:32:00 71 24 97 22.3 117/69(95) NSR 0 (11) 10(A) , No pain 12:36:14 73 24 100 25.3 116/78(104) NSR 0 (11) 10(A) , No pain 12:40:23 73 23 99 31.2 124/90(107) NSR 0 (11) 10(A) , No pain Medications Time Medication Route Dose Verified Delivered Reason Notes Effectiveness by by 11:42:30 0.9% NaCl I.V. 100 Rodrigo Gillian used for ml/hr Maria R Iraheta dramatic agent 11:42:42 Oxygen etCO2 2 Rodrigo Gillian used for Nasal l/min Maria R Iraheta procedure cannula RN 11:42:49 Lidocaine 2% added 20ml Rodrigo Rodrigo for local to vial Maria R Heck MD anesthetic field 11:42:54 Heparin Flush added 2 Rodrigo Rodrigo used for Bag to bags Maria R Heck MD procedure (1000units/500ml field NS) 12:03:23 Fentanyl I.V. 50 Rodrigo Gillian for sedation mcg Maria R Iraheta RN 12:03:33 Versed I.V. 2 mg Rodrigo Gillian for sedation Maria R Iraheta RN 12:11:39 Versed I.V. 1 mg Rodrigo Gillian for sedation Maria R Iraheta RN 12:21:31 Heparin Bolus I.V. 4000 Rodrigo Gillian for verif ied units Maria R Iraheta anticoagulation with Dr. ARIADNE Heck 12:25:16 Versed I.V. 1 mg Rodrigo French for sedation Maria R Iraheta physical therapist clinic director Log Time Note 11:36:27 Gillian Iraheta RN sent for patient. Start room use. 11:36:28 Time tracking: Regular hours (M-F 7:00 - 5:00) 11:36:32 Plan of Care:Hemodynamics will remain stable., Cardiac rhythm will remain stable., Comfort level will be maintained., Respiratory function will remain adequate., Patient/ family verbilizes understanding of procedure., Procedure tolerated without complication., Recovers from procedure without complications.. 11:36:34 Signed procedure consent form obtained from patient. 11:36:44 H&P Date Dictated: 04/15/2018 Within 30 days and on chart., H&P Addendum completed by physician on day of procedure. (MUST COMPLETE FOR ALL OUTPATIENTS). 11:38:05 Patient allergic to Other allergyACETAMINOPHEN, CLEMASTINE, BENADRYL, LEVAQUIN, MENTHOL, PHENPROPHEDRINE, TRIPLEMANINE, SULFA, CIPRO, QUINOLONES, MACROBID 11:38:58 Lab Result : BUN 32 mg/dl 11:38:58 Lab Result : Hemoglobin 15 g/dl 11:38:58 Lab Result : Creatinine 1.7 mg/dl 11:42:01 Patient Weight : 136.69 lbs 11:42:14 Patient received from Med II to CCL 1 Alert and oriented. Tansferred to table in Supine position. 11:42:15 Warm blankets applied, and mt hugger turned on for patient comfort. 11:42:15 Correct patient and procedure confirmed by team. 11:42:16 ECG and BP/O2 sat monitors applied to patient. 11:42:30 0.9% NaCl 100 ml/hr I.V. was administered by Gillian Iraheta RN; used for procedure; 11:42:42 Oxygen 2 l/min etCO2 Nasal cannula was administered by Gillian Iraheta RN; used for procedure; 11:42:49 Lidocaine 2% 20ml vial added to field was administered by Rodrigo Heck MD; for local anesthetic; 11:42:54 Heparin Flush Bag (1000units/500ml NS) 2 bags added to field was administered by Rodrigo Heck MD; used for procedure; 11:48:37 Vital chart was started 11:53:20 Baseline sample Acquired. 11:53:34 Rhythm: sinus rhythm 11:53:39 Full Disclosure recording started 11:53:41 Pre-procedure instructions explained to patient. 11:53:41 Pre-op teaching completed and patient verbalized understanding. 11:53:43 Family in patients room. 11:53:45 Patient NPO since Midnight. 11:53:47 Is the patient allergic to Iodine/contrast media? No. 11:53:49 Is patient on blood thinner?Yes 11:53:52 ACC The patient was administered the following blood thiners within the last 24 hours: ACCPlavix 11:53:58 Patient diabetic? No. 11:54:13 Previous problem with sedation/anesthesia? No ? 11:54:15 Snore? No 11:54:21 Sleep apnea? No 11:54:23 Deviated septum? No 11:54:23 Opens mouth fully? Yes 11:54:24 Sticks out tongue? Yes 11:54:26 Airway obstruction? No ? 11:54:28 Dentures? Yes IN 11:54:45 Pre procedure: right dorsailis pedis pulse 1+ Palpable, but thready & weak; easily obliterated 11:54:53 Patient pain scale 0/10 ?. 11:56:25 IV right hand D/C'd due to infiltration. 11:56:50 IV started by Gillian Iraheta RN inleft forearm with a 22 gauge IV catheter with 0.9% NaCl at KVO. 11:56:52 Lab results completed and on chart. 11:56:59 Right groin area was prepped with chlora-prep and draped in sterile fashion 11:57:01 Alarms reviewed by R. N. 11:57:01 Sharps counted by scrub and verified by R.N. 12:02:45 --------ALL STOP TIME OUT------ 12:02:45 Final Timeout: patient, procedure, and site verified with staff and physician. All members of the team are in agreement. 12:02:48 Right groin site verified by team. 12:02:51 Physical assessment completed. ASA score P 2 - A patient with mild systemic disease as per Rodrigo Heck MD. 12:02:55 Sedation plan: IV Moderate Sedation Medication:Versed, Fentanyl 12:03:23 Fentanyl 50 mcg I.V. was administered by Gillian Iraheta RN; for sedation; 12:03:33 Versed 2 mg I.V. was administered by Gillian Iraheta RN; for sedation; 12:06:25 Zero performed for pressure channel P1 12:06:47 Procedure started. 12:06:51 Local anesthetic to right femoral artery with Lidocaine 2% by Rodrigo Heck MD.INITIAL ACCESS ONLY 12:06:53 Use device set Femoral Dx 12:06:55 Tegaderm 4 x 4 (1626W) opened to sterile field. 12:06:56 ACIST Manifold (16020) opened to sterile field. 12:06:56 ACIST Hand Control (69700) opened to sterile field. 12:06:58 Medline Cath Pack ([id number]) opened to sterile field. 12:06:58 Bag Decanter (2002S) opened to sterile field. 12:06:59 ACIST Syringe (79810) opened to sterile field. 12:07:00 DIAGNOSTIC WIRE .035 260cm J wire (845566) opened to sterile field. 12:07:01 DIAGNOSTIC Multipack 5Fr catheter set (NW6558) opened to sterile field. 12:07:01 SHEATH Prelude 5Fr 0.035 (MJZ-6L-99-035) opened to sterile field. 12:07:20 A 5 Fr sheath was inserted into the Right Femoral artery 12:10:41 A MULTIPACK Pigtail 5 Fr catheter was advanced over the wire and used for Procedure. 12:11:25 Unable to cross valve. 12:11:39 Versed 1 mg I.V. was administered by Gillian Iraheta RN; for sedation; 12:11:45 Abdominal Aortagram was performed. 12:11:47 Right leg runoff performed. 12:11:48 Left leg runoff performed. 12:11:55 Catheter removed. 12:12:01 A MULTIPACK JL 4.0 5Fr catheter was advanced over the wire and used for Procedure. 12:12:57 LCA angiography performed. 12:13:26 Catheter removed. 12:14:06 A MULTIPACK 3DRC 5Fr catheter was advanced over the wire and used for Procedure. 12:16:48 JADE to LAD angiography performed. 12:17:44 RCA angiography performed. 12:18:44 Catheter removed. 12:18:58 A DIAGNOSTIC AR2 MOD 5 Fr catheter ([id number]) was advanced over the wire and used for Procedure. 12::23 SVG to Circ angiography performed. 12::58 SVG to RCA occluded. 12:20:02 Catheter removed. 12:20:39 Use device set MARIA R PCI 12:20:47 INFLATOR Merit BasixCompak (CJ8279) opened to sterile field. 12:20:51 CHOICE PT Extra Support 182cm wire ([id number]) opened to sterile field. 12:20:56 GUIDE 6FR AR 2.0 catheter (QY8OP23) opened to sterile field. 12:21:02 SHEATH Prelude 6Fr 0.035 (LME-3A-82-035) opened to sterile field. 12:21:31 Heparin Bolus 4000 units I.V. was administered by Gillian Iraheta RN; for anticoagulation; verified with Dr. Heck 12:22:16 Sheath upsized to a 6 Fr Short. 12::23 6 Fr AR 2 guide catheter was inserted over the wire 12:22:40 CPTXS wire advanced. 12::44 Wire advanced across lesion. 12:25:16 Versed 1 mg I.V. was administered by Gillian Iraheta RN; for sedation; 12:25:50 The INTEGRITY RX 4.0 x 09 stent ([id number]) was advanced and then removed because of failure to cross lesion 12:26:48 Inflate balloon Inflation number: 1 A EUPHORA 3.5 x 15 Balloon ([id number]) was prepped and advanced across the Aorta Left -> Dist CX, then inflated to 13 LEANA for 0:10 (min:sec). 12:27:30 Balloon removed over the wire. 12:30:08 CHOICE PT Extra Support 182cm wire ([id number]) opened to sterile field. 12:30:25 CPTXS wire advanced for support. 12:30:51 Stent advanced to lesion, 2nd wire removed. 12:30:54 Inflate balloon Inflation number: 2 A INTEGRITY RX 4.0 x 09 stent ([id number]) was prepped and advanced across the Aorta Left -> Dist CX, then inflated to 13 LEANA for 0:10 (min:sec). 12:31:05 Stent catheter was removed intact over wire. 12:31:06 Wire removed. 12:31:07 Guide catheter removed. 12:33:17 EXOSEAL 6Fr (EX600) opened to sterile field. 12:33:27 Sheath removed intact; hemostasis achieved with Exoseal to the Right Femoral artery. 12:34:21 Procedure ended.(Physican Out) 12:37:15 Fluoroscopy time 09.50 minutes. 12:37:22 Fluoroscopy dose: 720 mGy 12:37:22 Flurop Dose total: 720 12:37:40 Contrast amount:Isovue 300 140ml. 12:37:41 Sharps counted by scrub and verified by R.N. 12:38:14 Insertion/operative site no bleeding no hematoma. 12:38:17 Post-op/insertion site Right Femoral artery dressed using a 4 x 4 and Tegaderm. 12:38:18 Post Procedure Pulses reassessed and unchanged 12:38:21 Post-procedure physical assessment completed. ASA score P 2 - A patient with mild systemic disease as per Rodrigo Heck MD. 12:38:23 Post procedure rhythm: unchanged. 12:38:26 Estimated blood loss: 10 ml 12:38:28 Post procedure instruction explained to patient.Patient verbalizes understanding. 12:38:29 Patient needs reinforcement of post procedure teaching. 12:38:49 Procedure type changed to Cath procedure, Diagnostic procedure, LHC, Coronaries w/Grafts, PCI procedure, AMI/SVG/ACCOUNTING MACHINE SERVICER PTCA or Stent, SVG-BMS/SAW Initial, Peripheral Cath Diagnostic Procedure, Associate Of Science In Nursing Peripheral Procedures, Jqzvr-Tflxtkd-Gex-Off 12:39:10 Procedure and supply charges have been captured, reviewed, submitted and are correct. 12:39:14 Procedure Complication : No complications 12:40:17 Vital chart was stopped 12:40:17 See physician's report for complete and final results. 12:40:26 Report given to Pre/Post Procedure Room. 12:40:34 Patient transfered to Pre/Post Procedure Room with Stretcher. 12:40:39 Procedure ended. 12:40:39 Full Disclosure recording stopped 12:40:47 End room use (Document Last) Intervention Summary Intervention Notes Time ActionType Lesion and Equipment Action# Pressure Duration Attributes Used 12:25:50 Discard INTEGRITY RX Balloon 4.0 x 09 stent ([id number]) 12:26:48 Inflate Aorta Left EUPHORA 3.5 1 13 00:10 balloon -> Dist CX x 15 Balloon ([id number]) 12:30:54 Inflate Aorta Left INTEGRITY RX 2 13 00:10 balloon -> Dist CX 4.0 x 09 stent ([id number]) Device Usage Item Name Manufacture Quantity Catalog Number Hospital Part Current Minimal Lot# / Charge Number Stock Stock Serial# Code Tegaderm 4 x 4 3M 1 [id number] 256198 [id number] [id number] 5 ([id number]) ACIST Manifold Acist 1 88947 785774 471881 050822 5 (53002) [employer] Inc ACIST Hand Acist 1 01928 904371 556932 998670 5 Control (62472) [employer] Medline Cath Medline 1 [id number] 916368 37848 365086 5 Pack ([id number]) Bag Decanter Microtek 1 2001S 896789 18347 714121 5 (2001S) Medical Inc. ACIST Syringe Acist 1 32501 746569 966773 633832 20 (43835) [employer] DIAGNOSTIC WIRE [facility] [place] 1 054082 242656 042500 675596 30 .035 260cm J wire (199984) DIAGNOSTIC Cardinal 1 KT6506 790139 13464 080235 30 Multipack 5Fr Health catheter set ([id number]) SHEATH Prelude Merit 1 WQI-1Y-77-035 810989 094001 641266 5 5Fr 0.035 Medical (RBH-5K-73-035) MULTIPACK Cardinal 1 618015 5 Pigtail 5 Fr Health catheter MULTIPACK JL Cardinal 1 419370 5 4.0 5Fr Health catheter MULTIPACK 3DRC Cardinal 1 541927 5 5Fr catheter Health DIAGNOSTIC AR2 Cardinal 1 [id number] 920621 317886 702793 20 MOD 5 Fr Health catheter ([id number]) INFLATOR Merit Merit 1 IK1666 878535 376508 733388 15 inmobly Medical (AY6908) CHOICE PT Extra Easley 2 [id number] 381286 242463 233913 5 Support 182cm Scientific wire ([id number]) GUIDE 6FR AR Medtronic 1 [id number] 305757 42556 970768 1 2.0 catheter (OE7VB24) SHEATH Prelude Merit 1 DTQ-1W-87-35 123850 6625815 294659 5 6Fr 0.035 Medical (NEL-3J-86-035) INTEGRITY RX Medtronic 1 [id number] 214061 764523 488710 5 [id number] 4.0 x 09 stent ([id number]) EUPHORA 3.5 x Medtronic 1 [id number] 782408 048325 860128 5 [id number] 15 Balloon ([id number]) EXOSEAL 6Fr Cardinal 1 EX600 261432 169960 879920 10 (EX600) Health Signature Audit [place] Stage Time Signature Unsigned Intra-Procedure 04/16/2018 Gonzalo Queen 12:41:09 PM RT(R) Signatures Monitor : Gonzalo Queen RT Signature : Date : Time : [address] [address]
--- NOTE | ~2018-04-15 | MORECARE ---
CASE MANAGEMENT DISCHARGE SUMMARY PATIENT: BRODIE GARIBAY UNIT: [id number] ADM DATE: 04/17/18 AGE: 72 : 41 SEX: F ROOM/BED: D.2948 AUTHOR: MATIAS BENNETT PHYSICIAN: REFERRING PHYSICIAN: MARTIN CID MD DATE OF SERVICE: 04/20/18 Discharge Plan Patient Name: BRODIE [facility]AR[facility]AY [facility] 1945 Planned Disposition: Home Anticipated Discharge Date: 04/18/18 Discharge Date: 04/18/2018 Expected LOS: 1 Initial Reviewer: [email or web address] Initial Review Date: 04/20/2018 Generated: 04/20/18 8:43 am Patient Name: BRODIE GARIBAY Page 03354 at 0743 All edits/amendments must be made on the electronic document DICTATION DATE: 04/20/1842 STITCHER HAND: KELI 04/20/18 0742 RPT#: [id number] DC DATE:04/18/18 STATUS: DIS IN [facility] [address] [place] [address] END OF REPORT
[2018-04-15 18:08] LABS: BASOPHILS 0.3 % (0-2); EOSINOPHILS 1.1 % (0-7); HEMATOCRIT 43.9 % (36.0-48.0); IMMATURE GRANULOCYTES 1.9 % (0-5); LYMPHOCYTES 28.4 % (15-50); MCH 31.2 pg (26.0-34.0); MCHC 34.2 g/dL (31.0-37.0); MCV 91.3 fL (80.0-100.0); MEAN PLATELET VOLUME 9.6 fL (7.4-10.4); MONOCYTES 10.1 % (2-11); NEUTROPHILS 58.2 % (40-80); PLATELET COUNT 230 10x3/uL (130-400); RBC 4.81 10x6/uL (4.00-5.40); RDW 14.4 % (11.5-14.5); WBC 10.5 10x3/uL (4.8-10.8)
[2018-04-15 18:34] LABS: APPEARANCE HAZY (CLEAR); BILIRUBIN 1+ (NEGATIVE); COLOR DK YELLOW (YELLOW); GLUCOSE NEGATIVE (NEGATIVE); KETONE NEGATIVE (NEGATIVE); NITRITE POSITIVE (NEGATIVE); PROTEIN 1+ mg/dL (NEGATIVE); UROBILINOGEN NORMAL (NORMAL)
[2018-04-15 18:42] LABS: BACTERIA MANY /hpf (NONE SEEN); RED CELLS - URINE 0-5 /hpf (0-5); TALC POWDER CRYSTALS 0-5 /hpf (NONE SEEN)
[2018-04-15 18:46] LABS: ALBUMIN 3.3 g/dL (3.4-5.0); ALKALINE PHOSPHATASE 58 U/L (46-116); ALT (SGPT) 16 U/L (10-68); BILIRUBIN - TOTAL 0.66 mg/dL (0.2-1.3); CALC OSMOLALITY 280 mosm/kg (275-300); CALCIUM 9.9 mg/dL (8.5-10.1); CARBON DIOXIDE 27.5 mmol/L (21.0-32.0); CHLORIDE - SERUM 98 mmol/L (98-107); CREATININE - SERUM 1.7 mg/dL (0.6-1.3); GLUCOSE 90 mg/dL (74-106); POTASSIUM - SERUM 4.5 mmol/L (3.5-5.1); PROTEIN - SERUM 7.5 g/dL (6.4-8.2); SODIUM 137 mmol/L (136-145); UREA NITROGEN 32 mg/dL (7-18); eGFR NON AFRICAN AMERICAN 31 mL/min (90-120)
[2018-04-15 18:51] LABS: AMYLASE - SERUM 79 U/L (25-115); LIPASE 231 U/L (73-393); MAGNESIUM - SERUM 1.9 mg/dL (1.8-2.4); TROPONIN-I < 0.017 ng/mL (0.000-0.060)
[2018-04-15 19:12] LABS: THYROID STIMULATING HORMONE 2.53 uIU/mL (0.36-3.74)
[2018-04-15 19:18] LABS: UDS - AMPHET NEGATIVE QUAL (NEGATIVE); UDS - BARB NEGATIVE QUAL (NEGATIVE); UDS - BENZO POSITIVE QUAL (NEGATIVE); UDS - COCAINE NEGATIVE QUAL (NEGATIVE); UDS - OPIATE POSITIVE QUAL (NEGATIVE); UDS - PCP NEGATIVE QUAL (NEGATIVE); UDS - THC NEGATIVE QUAL (NEGATIVE)
[2018-04-16 00:35] VITALS: BP 99/64; BMI 21.9
[2018-04-16 04:00] VITALS: BP 119/92
[2018-04-16 10:26] LABS: BASOPHILS 0.8 % (0-2); EOSINOPHILS 2.5 % (0-7); HEMATOCRIT 41.8 % (36.0-48.0); HEMOGLOBIN 13.9 g/dL (12-16); IMMATURE GRANULOCYTES 2.4 % (0-5); LYMPHOCYTES 28.2 % (15-50); MCH 30.6 pg (26.0-34.0); MCHC 33.3 g/dL (31.0-37.0); MCV 92.1 fL (80.0-100.0); MEAN PLATELET VOLUME 9.4 fL (7.4-10.4); MONOCYTES 9.3 % (2-11); NEUTROPHILS 56.8 % (40-80); PLATELET COUNT 204 10x3/uL (130-400); RBC 4.54 10x6/uL (4.00-5.40); RDW 14.5 % (11.5-14.5)
[2018-04-16 10:37] LABS: WBC 7.6 10x3/uL (4.8-10.8)
[2018-04-16 10:38] LABS: ANION GAP 14.9 mmol/L (8-16); CARBON DIOXIDE 25.4 mmol/L (21.0-32.0); CREATININE - SERUM 1.7 mg/dL (0.6-1.3); POTASSIUM - SERUM 4.3 mmol/L (3.5-5.1)
[2018-04-16 12:51] VITALS: BMI 21.8
[2018-04-16 16:56] VITALS: BP 115/83
[2018-04-16 20:45] VITALS: BP 128/86
[2018-04-17] VITALS: BP 102/70
[2018-04-17 04:00] VITALS: BP 106/73
[2018-04-17 06:24] LABS: APTT 29.2 SECONDS (22.8-39.4); INR 1.08 (0.85-1.17); PROTIME 13.6 SECONDS (11.6-15.0)
[2018-04-17 06:28] LABS: ANION GAP 16.8 mmol/L (8-16); CALCIUM 8.4 mg/dL (8.5-10.1); CARBON DIOXIDE 23.5 mmol/L (21.0-32.0); CREATININE - SERUM 1.9 mg/dL (0.6-1.3); PHOSPHOROUS 3.9 mg/dL (2.5-4.9); POTASSIUM - SERUM 4.3 mmol/L (3.5-5.1)
[2018-04-17 06:42] LABS: BASOPHILS 0.3 % (0-2); EOSINOPHILS 2.5 % (0-7); HEMATOCRIT 38.5 % (36.0-48.0); HEMOGLOBIN 12.6 g/dL (12-16); IMMATURE GRANULOCYTES 2.4 % (0-5); LYMPHOCYTES 20.9 % (15-50); MCH 30.3 pg (26.0-34.0); MCHC 32.7 g/dL (31.0-37.0); MCV 92.5 fL (80.0-100.0); MEAN PLATELET VOLUME 10.2 fL (7.4-10.4); MONOCYTES 9.9 % (2-11); PLATELET COUNT 204 10x3/uL (130-400); RBC 4.16 10x6/uL (4.00-5.40); RDW 14.6 % (11.5-14.5); WBC 8.8 10x3/uL (4.8-10.8)
[2018-04-17 08:07] VITALS: BP 130/87
[2018-04-17 11:44] VITALS: BP 140/87
[2018-04-17 15:40] VITALS: BP 148/108
[2018-04-17 20:10] VITALS: Ht 167.6 cm; Wt 65.6 kg
[2018-04-17 21:23] LABS: APPEARANCE CLEAR (CLEAR); COLOR YELLOW (YELLOW); NITRITE NEGATIVE (NEGATIVE); PROTEIN TRACE mg/dL (NEGATIVE); SPECIFIC GRAVITY 1.015 (1.005-1.020)
[2018-04-17 21:24] LABS: BILIRUBIN NEGATIVE (NEGATIVE); GLUCOSE NEGATIVE (NEGATIVE); KETONE SMALL mg/dL (NEGATIVE); UROBILINOGEN NORMAL (NORMAL)
[2018-04-17 21:36] VITALS: BP 123/82
[2018-04-18 01:42] VITALS: BP 101/62
[2018-04-18 05:12] LABS: BASOPHILS 0.4 % (0-2); EOSINOPHILS 4.5 % (0-7); HEMATOCRIT 35.2 % (36.0-48.0); HEMOGLOBIN 11.4 g/dL (12-16); IMMATURE GRANULOCYTES 3.1 % (0-5); LYMPHOCYTES 22.5 % (15-50); MCH 30.1 pg (26.0-34.0); MCHC 32.4 g/dL (31.0-37.0); MCV 92.9 fL (80.0-100.0); MEAN PLATELET VOLUME 9.9 fL (7.4-10.4); MONOCYTES 13.1 % (2-11); NEUTROPHILS 56.4 % (40-80); PLATELET COUNT 182 10x3/uL (130-400); RBC 3.79 10x6/uL (4.00-5.40); RDW 14.4 % (11.5-14.5); WBC 7.1 10x3/uL (4.8-10.8)
[2018-04-18 05:35] LABS: ALBUMIN 2.4 g/dL (3.4-5.0); ANION GAP 13.4 mmol/L (8-16); BILIRUBIN - TOTAL 0.26 mg/dL (0.2-1.3); CALCIUM 8.2 mg/dL (8.5-10.1); CARBON DIOXIDE 23.1 mmol/L (21.0-32.0); CREATININE - SERUM 1.8 mg/dL (0.6-1.3); PHOSPHOROUS 3.3 mg/dL (2.5-4.9); PROTEIN - SERUM 6.2 g/dL (6.4-8.2)
[2018-04-18 05:39] LABS: POTASSIUM - SERUM 3.5 mmol/L (3.5-5.1)
[2018-04-18 06:34] VITALS: BP 130/33
[2018-04-18 07:58] VITALS: BP 132/95
[2018-04-18 12:05] VITALS: BP 163/83
[2018-04-18] MEDS ORDERED: CEFUROXIME250 MG PO (12:28)
[2018-04-18] MEDS ORDERED: PLAVIX75 MG PO (13:29)
[2018-04-18] MEDS ORDERED: BETAPACE 80 MG80 MG PO (13:30)
== END 2018-04-18 15:01 | disposition home or self-care (01) | DRG 249 ==
LOC: D.ER 17:28 → D.M2 20:12 → D.EDHOLD 20:12 → OBSVTIME 20:13 → D.MS 21:04 → D.EDHOLD 21:08 → D.M2 23:09
PROVIDERS: Family Medicine; Internal Medicine Interventional Cardiology; Student in an Organized Health Care Education/Training Program
PROC: B2151ZZ Fluoroscopy of Left Heart using Low Osmolar Contrast (ICD-10-PCS; 2018-04-16)
PROC: B2181ZZ Fluoroscopy of Left Internal Mammary Bypass Graft using Low Osmolar Contrast (ICD-10-PCS; 2018-04-16)
PROC: B4101ZZ Fluoroscopy of Abdominal Aorta using Low Osmolar Contrast (ICD-10-PCS; 2018-04-16)
PROC: 02703DZ Dilation of Coronary Artery, One Artery with Intraluminal Device, Percutaneous Approach (ICD-10-PCS; principal; 2018-04-16 11:36)
PROC: 4A023N7 Measurement of Cardiac Sampling and Pressure, Left Heart, Percutaneous Approach (ICD-10-PCS; 2018-04-16 11:36)
PROC: B2111ZZ Fluoroscopy of Multiple Coronary Arteries using Low Osmolar Contrast (ICD-10-PCS; 2018-04-16 11:36)
DX: I25.110 Atherosclerotic heart disease of native coronary artery with unstable angina pectoris (principal); N39.0 Urinary tract infection, site not specified; I71.4 Abdominal aortic aneurysm, without rupture; M06.9 Rheumatoid arthritis, unspecified; I48.0 Paroxysmal atrial fibrillation; M32.9 Systemic lupus erythematosus, unspecified; M35.00 Sjogren syndrome, unspecified; I73.00 Raynaud's syndrome without gangrene; D64.9 Anemia, unspecified; I73.9 Peripheral vascular disease, unspecified; E78.5 Hyperlipidemia, unspecified; R94.31 Abnormal electrocardiogram [ECG] [EKG]; Z16.24 Resistance to multiple antibiotics; F32.9 Major depressive disorder, single episode, unspecified; Z95.1 Presence of aortocoronary bypass graft